=== PATIENT | female | born 1950 | race Caucasian/White ===

== ENCOUNTER → 2017-03-25 | Outpatient (CLI) | payer MEDICARE, OTHER ==
--- NOTE | 2017-03-25 10:08 | REP ---
ULTRASOUND OF ABDOMINAL AORTA: Real-time sonographic evaluation of abdominal aortic performed. Proximal abdominal aorta at the level of the diaphragms is upper limits of normal in size at 3.0 x 3.4 cm. There is no abnormal aortic aneurysm. At the level of the renal artery these measurements are 1.8 x 1.2 cm, mid aspect 2.6 x 2.2 cm and distally just above the bifurcation 1.7 x 2.0 cm. Common iliac arteries are normal in caliber, right measuring 1 cm in diameter and left 0.9 x 1.1 cm. IMPRESSION: Very proximal aspect of abdominal aorta upper limits of normal in caliber. No abnormal aortic aneurysm. Mild atherosclerotic calcifications are noted. Signed by Lino Harrington MD 03/25/2017 05:11 P
== END ==
LOC: M RAD 08:40
PROVIDERS: ATTEND Surgery Vascular Surgery
DX: I71.4 Abdominal aortic aneurysm, without rupture (principal)

== ENCOUNTER → 2017-07-10 | Outpatient (CLI) | payer MEDICARE, OTHER ==
--- NOTE | 2017-07-10 09:23 | REP ---
CT of the chest without IV contrast: Comparisons are the CT studies of the chest dated 08/22/2016 and 02/11/2014. Additionally there is a CT of the abdomen pelvis dated 08/22/2016. There is dilatation of the ascending thoracic aorta today measuring four point 4 cm transverse diameter. This measured 4.3 cm on 08/22/2016 and 02/11/2014. The aortic isthmus measures 3.8 mm transverse diameter of the proximal descending thoracic aorta measures 2.9 cm. This tapers to to point centimeters at the diaphragmatic hiatus, without evidence of aneurysm. On the comparison CT of the abdomen pelvis dated 08/22/2016 there was no abdominal aortic aneurysm. On the study today there is no aneurysm of the visualized upper abdominal aorta to the level of the renal arteries. The aorta, inferior to this level is not included on the current scan. There is a 11.4 mm spiculated nodule posteriorly in the apex of the right lung on image 22. On 2013. This measured 11.7 mm and is not significantly changed. No other nodules or masses are identified. There are no acute infiltrates or effusions. There is no mediastinal adenopathy. No axillary adenopathy. In the absence of IV contrast study is insensitive for hilar adenopathy. Cardiac size is normal. There is no pericardial effusion. In the visualized upper abdomen there is no adrenal mass. The visualized hepatic parenchyma is homogeneous. Surgical clips in the gallbladder fossa. There are calcified granulomas in the spleen. The spleen is normal size. Impression: There is an dilatation of the ascending thoracic aorta as described. There is no aneurysm of the aortic isthmus or descending thoracic aorta. There is no aneurysm in the visualized portion of the aorta and the upper abdomen included with this CT scan of the chest. I note the the patient has CT of the abdomen pelvis on 08/22/2016. There is no abdominal aortic aneurysm on that prior scan. There is a spiculated 11.4 mm nodule posteriorly in the apex of the right lung. This measured 11, 0.7 mm on 02/11/2014. Otherwise, negative CT study of the chest. Signed by Lino Martin MD 07/10/2017 09:14 A
== END ==
LOC: M RAD 08:22
PROVIDERS: ATTEND Surgery Vascular Surgery
DX: R91.1 Solitary pulmonary nodule (principal)

== ENCOUNTER → 2017-12-02 | Outpatient (REF) | payer MEDICARE, OTHER | LOC: M SFHCWAGY 15:35 | DX: R30.0 Dysuria (principal) | CPT/HCPCS: 87088; 87186 ==

== ENCOUNTER → 2018-02-24 | Outpatient (CLI) | payer MEDICARE, OTHER | LOC: M WHC 11:19 | DX: Z12.31 Encounter for screening mammogram for malignant neoplasm of breast (principal); Z78.0 Asymptomatic menopausal state; Z80.3 Family history of malignant neoplasm of breast; Z98.890 Other specified postprocedural states; Z79.890 Hormone replacement therapy | CPT/HCPCS: 77067 ==

== ENCOUNTER → 2018-07-29 | Outpatient (CLI) | payer MEDICARE, OTHER | LOC: M RAD 07:14 | DX: I71.2 Thoracic aortic aneurysm, without rupture (principal); Z53.8 Procedure and treatment not carried out for other reasons ==

== ENCOUNTER → 2018-07-30 | Outpatient (CLI) | payer MEDICARE, OTHER | LOC: M CARPUL 11:41 | DX: I71.2 Thoracic aortic aneurysm, without rupture (principal) | CPT/HCPCS: 93306 ==

== ENCOUNTER → 2019-02-24 | Outpatient (CLI) | payer MEDICARE, OTHER ==
--- NOTE | 2019-02-24 12:55 | REPMRS ---
Patient History The patient states she has not had a clinical breast exam in over a year. Patient is postmenopausal. Family history of breast cancer at age 67 in sister. Benign cyst aspiration of the right breast. Took estrogen for 3 months. Took unspecified hormones for 30 years. Digital Woman Screen Mammo: February 24, 2019 - Exam #: [id number] Bilateral CC and MLO view(s) were taken. Technologist: Char Garza, Technologist Prior study comparison: February 24, 2018, digital woman screen mammo performed at [facility]. May 05, 2014, right breast digital mammo diagnostic unilateral, performed at [facility]. April 27, 2014, digital woman screen mammo performed at [facility]. April 03, 2011, bilateral bilat screen digital mammo performed at [facility]. FINDINGS: There are scattered fibroglandular densities. There is a moderate amount of residual fibroglandular tissue which is fairly symmetric. There is no interval development of dominant mass, architectural distortion, or clustered microcalcification typical of malignancy. There has been no change in the appearance of the mammogram from the prior studies. 3-D tomosynthesis shows no additional findings. Assessment: BI-RADS/ACR category 1 mammogram. Negative Mammogram. Recommendation Routine screening mammogram of both breasts in 1 year (for women over age 40). This patient's Lifetime Breast Cancer RIsk is estimated at 5.5 %. This mammogram was interpreted with the aid of an FDA-approved computer-aided dectection system. Electronically Signed By: Amor Levine MD 02/24/19 [id number]
--- NOTE | 2019-02-26 14:04 | DEXA ---
AP SPINE L1 - L4 1.093 -0.8 0.9 LT FEMUR TOTAL 0.874 -1.1 0.4 LT NECK 0.730 -2.2 -0.5 RT FEMUR TOTAL 0.904 -0.8 0.7 RT NECK 0.684 -2.5 -0.8 TOTAL BODY TOTAL OTHER COMMENTS: Normal bone densitometry of the spine. There is low bone density of the hips. FOLLOW-UP: Recommendation for the next bone density exam: 2 years. JOANN
== END ==
LOC: M WHC 10:24
PROVIDERS: ATTEND Internal Medicine
DX: Z12.31 Encounter for screening mammogram for malignant neoplasm of breast (principal); M81.0 Age-related osteoporosis without current pathological fracture; Z78.0 Asymptomatic menopausal state; Z85.3 Personal history of malignant neoplasm of breast; Z92.23 Personal history of estrogen therapy

== ENCOUNTER → 2019-03-12 | Outpatient (CLI) | payer MEDICARE, OTHER ==
--- NOTE | 2019-03-12 15:11 | REP ---
Clinical: Thoracic aortic aneurysm. Technique: Axial noncontrast images from the thoracic inlet to the upper abdomen with coronal and sagittal re-formations. Comparison: 07/10/2017. Findings: The ascending thoracic aorta above the level of the root measures approximately 4.6 cm maximal diameter and tapering to approximately 3.7 cm through the proximal arch and 2.8 cm along the descending thoracic aorta and 2.3 cm at the diaphragmatic hiatus. A minimal amount of calcified atheromatous plaquing is again noted and no periaortic inflammatory stranding or fluid is identified. Heart is grossly unremarkable and without cardiomegaly or pericardial effusion. The lung estrada demonstrate minimal chronic-appearing scattered changes primarily noted at the right apex and the lingula as well as the bilateral bases. No acute consolidation, significant nodule or mass lesion. No pleural effusion. No pneumothorax. Tracheobronchial tree is patent. No obvious adenopathy. Impression: 1. Essentially stable aneurysmal dilatation to the ascending thoracic aorta with findings as described above. 2. No acute mediastinal or pleuroparenchymal process appreciated. Electronically Signed by Jose Shell MD 03/12/2019 03:02 P
== END ==
LOC: M RAD 14:22
PROVIDERS: ATTEND Surgery Vascular Surgery
DX: I71.2 Thoracic aortic aneurysm, without rupture (principal); I70.0 Atherosclerosis of aorta

== ENCOUNTER → 2019-08-03 | Outpatient (CLI) | payer MEDICARE, OTHER ==
--- NOTE | 2019-08-03 12:10 | ECHO ---
DATE OF STUDY: 08/03/2019 AGE: 69. GENDER: Female. HEIGHT: 69 inches. WEIGHT: 211 pounds. BODY SURFACE AREA: 2.11 sq m OUTPATIENT REFERRING PHYSICIAN: Dr. Jose M Mendez INDICATION: Thoracic aortic aneurysm without rupture. MEASUREMENTS: 2D measurements: RV - 4.1 cm LV - 5.2 cm Septum 1.2 cm Posterior wall 1.2 cm LA - 4.0 cm Aortic root 3.6 cm Proximal ascending aorta 4.2 cm LVEF 65% Doppler measurements: AV - 1.45 m/s LVOT - 1.08 m/s MV - E 51 A - 90 EA ratio 0.6 E prime 5.9, A prime 10, E/E prime ratio 8.6 PCWP 11.6 mmHg PV 0.8 m/s Pulmonary artery acceleration time 103 ms PASP 37 mmHg IVC - 2.2 cm COMMENTS: Normal sinus rhythm with right bundle branch block. Occasional to frequent PACs. Technically challenging study in light of the patient's body habitus, but diagnostically useful information was still obtained. M-mode and two-dimensional echocardiography was performed with pulsed, continuous wave, color flow and tissue Doppler studies. Mild concentric left ventricular hypertrophy with preserved systolic function. At least mild to moderately dilated left atrium (from the apical four-chamber projections) with impairment of LV diastolic function grade 1 but current estimated mean left atrial pressure. Normal right heart chamber sizes and motion with Doppler sign of mild pulmonary hypertension. IVC size was upper limits of normal, but we could not clearly visualize respiratory variation for technical reasons to further estimate central venous pressure. Mild aortic valvular sclerosis without functional valvular abnormality. Normal aortic root size but mildly dilated proximal ascending aorta. Mild degenerative changes of the mitral valvular apparatus with very mild mitral insufficiency. Normal-appearing tricuspid valve with no more than trace insufficiency. No apparent intracardiac mass or pericardial effusion. Comparing the above test findings with those of 07/2018, there did not appear to be a significant change.
== END ==
LOC: M CARPUL 08:23
PROVIDERS: ATTEND Internal Medicine
DX: I34.0 Nonrheumatic mitral (valve) insufficiency (principal); I35.0 Nonrheumatic aortic (valve) stenosis; I51.7 Cardiomegaly; R93.9 Diagnostic imaging inconclusive due to excess body fat of patient; I45.10 Unspecified right bundle-branch block; I71.2 Thoracic aortic aneurysm, without rupture

== ENCOUNTER → 2020-03-18 | Outpatient (CLI) | payer MEDICARE, OTHER ==
--- NOTE | 2020-03-18 11:33 | REP ---
REASON FOR EXAM: Followup. All priors were reviewed, some of which were performed after the administration of intravenous contrast and some without the administration of intravenous contrast, as our exam today is. Limited evaluation of the mediastinum and pulmonary theodore show no significant changes from 03/12/2019. Limited evaluation of the thoracic aorta shows no significant changes from 03/12/2019. Limited evaluation of the imaged upper abdomen shows no significant changes. Once again, there is pneumobilia. Surgical clips are again seen in the gallbladder fossa from previous cholecystectomy. Scattered pancreatic calcifications are noted, status quo. Evaluation of the osseous structures shows no significant changes. Evaluation of the lung estrada shows chronic changes, status quo without evidence of a new abnormal nodule, mass, or opacities. IMPRESSION: Limited but stable exam, as described above. Electronically Signed by Severino Briggs DO 03/18/2020 05:01 P
== END ==
LOC: M RAD 09:36
PROVIDERS: ATTEND Internal Medicine
DX: R91.1 Solitary pulmonary nodule (principal); I71.2 Thoracic aortic aneurysm, without rupture

== ENCOUNTER → 2020-07-22 | Outpatient (CLI) | payer MEDICARE, OTHER ==
--- NOTE | 2020-07-22 12:26 | REPMRS ---
Patient History The patient states she has not had a clinical breast exam in over a year. Family history of breast cancer at age 67 in sister. Benign cyst aspiration of the right breast. Took estrogen for 3 months. Took unspecified hormones for 30 years. 3D TOMOSYNTHESIS WAS PERFORMED. [facility] lifetime risk for breast cancer is 4.9%. VOLPARA DENSITY B. Digital Woman Screen Mammo: July 22, 2020 - Exam #: [id number] Bilateral CC and MLO view(s) were taken. Technologist: Gala Tinsley, Technologist Prior study comparison: February 24, 2019, bilateral digital woman screen mammo performed at [facility]. February 24, 2018, digital woman screen mammo performed at [facility]. FINDINGS: The breast tissue is heterogeneously dense. This may lower the sensitivity of mammography. There has been no change in the appearance of the mammogram from the prior studies. There is a moderate amount of residual fibroglandular tissue which is fairly symmetric. There is no interval development of dominant mass, areas of architectural distortion, or clustered microcalcification typical of malignancy. Assessment: BI-RADS/ACR category 1 mammogram. Negative Mammogram. Recommendation Routine screening mammogram in 1 year (for women over age 40). This mammogram was interpreted with the aid of an FDA-approved computer-aided dectection system. Electronically Signed By: Lino Harrington MD 07/22/20 [id number]
== END ==
LOC: M WHC 11:16
PROVIDERS: ATTEND Internal Medicine
DX: Z12.31 Encounter for screening mammogram for malignant neoplasm of breast (principal); Z80.3 Family history of malignant neoplasm of breast

== ENCOUNTER → 2021-10-03 | Outpatient (CLI) | payer MEDICARE, OTHER ==
--- NOTE | 2021-10-03 10:36 | REPMRS ---
Patient History The patient states she has not had a clinical breast exam in over a year. Family history of breast cancer at age 67 in sister. Benign cyst aspiration of the right breast. Took estrogen for 3 months. Took unspecified hormones for 30 years. Tomosynthesis is performed. Volpara breast density is b. [facility] lifetime risk of breast cancer 4.5%. Patient states no breast complaints today. Patient has signed MRS History Sheet. Digital Woman Screen Mammo: October 03, 2021 - Exam #: [id number] Bilateral CC and MLO view(s) were taken. Technologist: Gala Tinsley, Technologist Prior study comparison: July 22, 2020, bilateral digital woman screen mammo performed at [facility]. February 24, 2019, bilateral digital woman screen mammo performed at [facility]. FINDINGS: There are scattered fibroglandular densities. There has been no change in the appearance of the mammogram from the prior studies. There is a mild amount of residual fibroglandular tissue which is fairly symmetric. There is no interval development of dominant mass, architectural distortion, or clustered microcalcification suggestive of malignancy. Assessment: BI-RADS/ACR category 1 mammogram. Negative Mammogram. Recommendation Routine screening mammogram in 1 year (for women over age 40). This mammogram was interpreted with the aid of an FDA-approved computer-aided dectection system. Electronically Signed By: Lino Harrington MD 10/03/21 [id number]
== END ==
LOC: M WHC 08:08
PROVIDERS: ATTEND Internal Medicine
DX: Z12.31 Encounter for screening mammogram for malignant neoplasm of breast (principal)

== ENCOUNTER → 2021-10-09 | Outpatient (CLI) | payer MEDICARE, OTHER | LOC: M RAD 13:53 | PROVIDERS: ATTEND Internal Medicine | DX: R91.8 Other nonspecific abnormal finding of lung field (principal) ==

== ENCOUNTER → 2022-03-09 | Outpatient (CLI) | payer MEDICARE, OTHER | LOC: M CARPUL 07:53 | PROVIDERS: ATTEND Internal Medicine | DX: I71.2 Thoracic aortic aneurysm, without rupture (principal) ==

== ENCOUNTER → 2023-03-15 | Outpatient (REF) | payer MEDICARE, OTHER | LOC: M LAB REF 12:59 | PROVIDERS: ATTEND Nurse Practitioner Family | DX: N39.0 Urinary tract infection, site not specified (principal) ==

== ENCOUNTER → 2023-04-30 | Outpatient (CLI) | payer MEDICARE, OTHER | LOC: M WHC 12:27 | PROVIDERS: ATTEND Internal Medicine | DX: Z12.31 Encounter for screening mammogram for malignant neoplasm of breast (principal); M81.0 Age-related osteoporosis without current pathological fracture ==

== ENCOUNTER → 2023-08-27 | Outpatient (REF) | payer MEDICARE, OTHER | LOC: M LAB REF 16:17 | PROVIDERS: ATTEND Nurse Practitioner Adult Health | DX: Z79.899 Other long term (current) drug therapy (principal); M81.0 Age-related osteoporosis without current pathological fracture ==

== ENCOUNTER → 2024-05-22 | Outpatient (CLI) | payer MEDICARE, OTHER | LOC: M WHC 08:21 | PROVIDERS: ATTEND Internal Medicine | DX: Z12.31 Encounter for screening mammogram for malignant neoplasm of breast (principal) ==

== ENCOUNTER → 2025-06-15 | Outpatient (CLI) | payer MEDICARE, OTHER | LOC: M WHC 08:03 | PROVIDERS: ATTEND Nurse Practitioner Adult Health | DX: M81.0 Age-related osteoporosis without current pathological fracture (principal) ==

== ENCOUNTER → 2025-06-18 | Outpatient (REF) | payer MEDICARE, OTHER | LOC: M LAB REF 12:08 | PROVIDERS: ATTEND Internal Medicine | DX: M81.0 Age-related osteoporosis without current pathological fracture (principal); Z79.899 Other long term (current) drug therapy ==

== ENCOUNTER → 2025-09-29 | Outpatient (CLI) | payer MEDICARE, OTHER | LOC: M PLAIMG 13:19 | PROVIDERS: ATTEND Internal Medicine | DX: R91.1 Solitary pulmonary nodule (principal) ==